=== PATIENT | female | born 1990 | race Caucasian/White ===

== ENCOUNTER 2020-10-17 09:49 | Inpatient (IN) | payer OTHER ==
[2020-10-17] MEDS ORDERED: CITRIC ACID-SODIUM CITRATE 15 ML CUP PO ONE (10:12)
[2020-10-17] MEDS ORDERED: LACTATED RINGERS 1,000 ML IV ONE (10:12)
--- NOTE | 2020-10-17 10:50 | P.HPOB ---
History of Present Illness H&P Date: 10/17/20 Chief Complaint: IUP at 39 weeks, history of 1 desires repeat This is a 30-year-old at 39 weeks of (edc 10/24/20 LMP c/w first trimester ultrasound) that presents for scheduled repeat section. Patient has been receiving routine care which has been essentially uncomplicated. Patient notes good movement denies vaginal bleeding or loss of fluid. On bloodwork this patient has a blood type of A+, rubella status nonimmune, RPR is nonreactive, hepatitis B surface antigen is negative, HIV is negative, she did pass her 1 hour GDS, maternity 21 testing was negative, group beta strep cultures were negative on 09/29. Review of Systems Constitutional: Denies chills, Denies fatigue, Denies fever Ears, nose, mouth and throat: Denies headache Cardiovascular: Reports leg edema Respiratory: Denies dyspnea Gastrointestinal: Denies constipation, Denies diarrhea, Denies nausea, Denies vomiting Genitourinary: Reports Past Medical History Past Medical History: No Reported History History of Any Multi-Drug Resistant Organisms: None Reported Past Surgical History: Appendectomy, Section Additional Past Surgical History / Comment(s): 2010 c section, 2012 appendectomy Past Anesthesia/Blood Transfusion Reactions: No Reported Reaction Past Psychological History: No Psychological Hx Reported Smoking Status: Former smoker Past Alcohol Use History: None Reported Past Drug Use History: None Reported Additional Drug Use History / Comment(s): Stopped smoking February 2020 - Past Family History Mother Family Medical History: No Reported History Medications and Allergies Home Medications Medication Instructions Recorded Confirmed Type Aspirin [Adult Low Dose Aspirin EC] 81 mg PO DAILY 10/17/20 10/17/20 History Pnv No.95/Ferrous Fum/Folic AC 1 each PO DAILY 10/17/20 10/17/20 History [ Multivitamin Tablet] Allergies Allergy/AdvReac Type Severity Reaction Status Date / Time No Known Allergies Allergy Verified 10/17/20 10:10 Exam Osteopathic Statement: *. No significant issues noted on an osteopathic structural exam other than those noted in the History and Physical/Consult. Vital Signs Temp Pulse Resp BP Pulse Ox 10/17/20 10:09 98.4 F 102 H 16 128/80 97 Intake and Output 10/16/20 10/17/20 10/17/20 22:59 06:59 14:59 Other: Weight 102.076 kg Targeted physical exam is performed in this date and audit associate a well-nourished well-developed female in no acute distress, breathing is noted to be nonlabored, heart has a regular rate and rhythm, abdomen is gravid and ap propriate for gestational age, heart tones returned be category 1 and she is not tonie. Cervical exam is deferred. Assessment and Plan (1) 39 weeks gestation of Current Visit: Yes Status: Acute Code(s): Z3A.39 - 39 WEEKS GESTATION OF SNOMED Code(s): 69538126 (2) H/O section Current Visit: Yes Status: Acute Code(s): Z98.891 - HISTORY OF UTERINE SCAR FROM PREVIOUS SURGERY SNOMED Code(s): 170030039 Plan: 30-year-old at 39 weeks of gestation that presents for scheduled repeat section. Patient is counseled on risks of surgery including but not limited to infection, bleeding, damage to bladder, injury. Patient states understanding and is taken back to the operating suite.
[2020-10-17 11:10] LABS: HCT 35.9 % (34.0-46.0); HGB 12.3 gm/dL (11.4-16.0); MCH 30.2 pg (25.0-35.0); MCHC 34.3 g/dL (31.0-37.0); MCV 88.1 fL (80.0-100.0); Mean Platelet Volume 8.3; Platelet Count 207 k/uL (150-450); RBC 4.08 m/uL (3.80-5.40); RDW 14.4 % (11.5-15.5); WBC 9.9 k/uL (3.8-10.6)
[2020-10-17] MEDS ORDERED: OXYTOCIN 30 UNITS/500 ML NS BAG IV ONE (11:40)
[2020-10-17] MEDS ORDERED: KETOROLAC 15 MG/ML 1 ML VIAL ONE (11:40)
[2020-10-17] MEDS ORDERED: MORPHINE SULFATE (PF) 0.3 MG/0.3 ML SYR ONE (11:40)
[2020-10-17] MEDS ORDERED: ONDANSETRON 4 MG/2 ML VIAL ONE (11:40)
[2020-10-17 12:09] LABS: Lymphocytes # (M) 1.49 k/uL (1.0-4.8); Monocytes # (M) 0.59 k/uL (0-1.0); Neutrophils # (M) 7.72 k/uL (1.3-7.7); Neutrophils % (M) 78 %; Nucleated Red Blood Cells 0 /100 WBC (0-0); Total Cells Counted 100
--- NOTE | 2020-10-17 12:37 | P.OP ---
Date of Procedure: 10/17/20 Preoperative Diagnosis: IUP at 39 weeks, history of 1 desires repeat Postoperative Diagnosis: Same Procedure(s) Performed: Repeat section Anesthesia: spinal Surgeon: Lacey Escobedo [employer] Utility Worker #1: Dianelys Granados Estimated Blood Loss (ml): 500 IV fluids (ml): 1,000 Urine output (ml): 150 Pathology: none sent Condition: stable Disposition: observation Indications for Procedure: 30-year-old at 39 weeks of gestation with a history of 1, desires repeat Operative Findings: Normal uterus tubes and ovaries were appreciated, viable female delivered at 1206, weight of 8 lbs. 3 oz. and Apgars of 8 and 9 at one and 5 minutes respectively. Description of Procedure: The patient was prepped and draped in the usual fashion after spinal anesthesia was administered by anesthesia. A Pfannenstiel incision was made and extended of the abdominal cavity without difficulty. The bladder peritoneum was elevated and incised and reflected distally. A 2 cm incision was made in the transverse plane of the lower uterine segment to enter the uterus at which time clear fluid was noted. The incision was extended in both directions using the bandage scissors. The head was encountered within the field and delivered up and through the incision where the nose and mouth were thoroughly suctioned. Remainder of the was delivered onto the surgical field where the cord was doubly clamped, cut, and the infant was passed for resuscitative measures with weight and Apgars as noted above. A segment of cord was then doubly clamped, and cut.. The placenta was delivered manually, intact, and was grossly normal with a grossly normal three-vessel cord. The uterus was exteriorized and the interior cavity of the uterus swept of any remaining placental and membranous fragments with a laparotomy sponge. The margins of the incision were grasped with Allis clamps and the incision closed in 2 layers. First layer was a running locking layer of 0 Vicryl from margin to margin followed by a second layer of imbricating 0 Vicryl from margin to margin. Any small points of bleeding were then made hemostatic with the Bovie. Once hemostasis was achieved, the posterior cul-de-sac was suctioned with a guard and the uterine and ovarian findings are as noted above. The uterus was replaced within the abdominal cavity and the gutters swept of any remaining blood fluid or clot. The incision was again reexamined and hemostasis was noted to be excellent. Any small point of bleeding were made hemostatic with the Bovie. Once hemostasis was achieved the parietal peritoneum was loosely reapproximated. The layer of muscles were examined and made hemostatic with the Bovie. Attention was then turned to the fascia which was closed with 2 running stitches of 0 Vicryl proceeding from the lateral margins to the midpoint. The subcutaneous tissues were irrigated, made hemostatic with the Bovie, and reapproximated with a running stitch of 30 Vicryl. The skin was reapproximated with 4-0 Vicryl. Estimated blood loss for the case was approximately 500 mL. All sponge instrument and needle counts are correct. There were no complications. The patient tolerated the procedure well and proceeded to the recovery room in stable condition. Both mother and infant are resting comfortably in recovery.
[2020-10-17] MEDS ORDERED: diphenhydrAMINE 25 MG CAP PO PRN (13:05)
[2020-10-17] MEDS ORDERED: ZOLPIDEM 5 MG TAB PO PRN (13:05)
[2020-10-17] MEDS ORDERED: ONDANSETRON 4 MG/2 ML VIAL IVP PRN (13:05)
[2020-10-17] MEDS ORDERED: diphenhydrAMINE 50 MG CAP PO PRN (13:05)
[2020-10-17] MEDS ORDERED: LACTATED RINGERS 1,000 ML IV SCH (13:05)
[2020-10-17] MEDS ORDERED: METOCLOPRAMIDE 5 MG/ML 2 ML VIAL IVP PRN (13:05)
[2020-10-17] MEDS ORDERED: OXYTOCIN 30 UNITS/500 ML NS 30 UNIT in SALINE 1 500ML.BAG IV SCH (13:05)
[2020-10-17] MEDS ORDERED: SIMETHICONE 80 MG CHEWABLE PO PRN (13:05)
[2020-10-17] MEDS ORDERED: diphenhydrAMINE 50 MG/ML 1 ML VIAL IVP PRN ×2 (13:05)
[2020-10-17] MEDS ORDERED: NALOXONE 0.4 MG/ML 1 ML VIAL IV PRN ×2 (13:05→14:25)
[2020-10-17] MEDS: ACETAMINOPHEN IV (For NPO) 1,000 MG in EMPTY BAG 1 BAG IVPB SCH ×2 (13:50→20:42)
[2020-10-17] MEDS ORDERED: MORPHINE SULFATE 2 MG/ML SYRINGE IVP PRN (14:25)
[2020-10-17] MEDS: LACTATED RINGERS 1,000 ML IV SCH ×2 (14:59→16:57)
[2020-10-17] MEDS: ACETAMINOPHEN TAB 500 MG TAB PO SCH ×2 (15:52→21:14)
[2020-10-17] MEDS: IBUPROFEN IV 800 MG in SODIUM CHLORIDE 0.9% 250 ML IV SCH (16:56)
[2020-10-17] MEDS: IBUPROFEN 600 MG TAB PO SCH ×2 (21:14→22:53)
[2020-10-17] MEDS: SENNOSIDES-DOCUSATE SODIUM 1 EACH TAB PO SCH (21:14)
[2020-10-18] MEDS: IBUPROFEN IV 800 MG in SODIUM CHLORIDE 0.9% 250 ML IV SCH ×4 (00:51→18:15)
[2020-10-18] MEDS: LACTATED RINGERS 1,000 ML IV SCH ×2 (02:29→18:15)
[2020-10-18] MEDS ORDERED: MEASLES-MUMPS-RUBELLA VACC/PF 12,500 UNIT/0.5 ML VIAL SQ ONE (03:33)
[2020-10-18] MEDS: ACETAMINOPHEN TAB 500 MG TAB PO SCH ×5 (04:20→23:51)
[2020-10-18 06:49] LABS: HCT 37.2 % (34.0-46.0); HGB 12.6 gm/dL (11.4-16.0); MCHC 33.8 g/dL (31.0-37.0); MCV 88.6 fL (80.0-100.0); Mean Platelet Volume 8.3; Platelet Count 201 k/uL (150-450); RDW 14.4 % (11.5-15.5); WBC 11.7 k/uL (3.8-10.6)
--- NOTE | 2020-10-18 07:07 | P.PN ---
Progress Note - Text Postop day 1 from under spinal anesthesia with intrathecal morphine given for postop pain management. Patient is doing well. Pain is well controlled. On visual analog scale 2-3/10 Mild itching present No nausea or vomiting reported. No Headache or weakness and numbness in the legs. No complications from spinal anesthesia.
--- NOTE | 2020-10-18 07:52 | P.PNOBGPC ---
Subjective - Subjective Principal diagnosis: POD 1 RCS Interval history: Patient did well overnight. She is ambulating and voiding without difficulty. She is tolerating clear liquids without nausea or vomiting. She states her pain is well-controlled. Patient reports: Reports appetite normal, Reports voiding normally, Reports pain well controlled, Reports ambulating normally [place]: doing well Objective - Vital Signs Latest vital signs: Vital Signs Temp Pulse Resp BP Pulse Ox 10/18/20 04:00 97.9 F 93 14 102/59 99 10/18/20 00:00 97.9 F 85 18 104/53 99 10/17/20 20:00 97.0 F L 83 18 111/61 98 10/17/20 16:58 17 10/17/20 15:14 17 98 10/17/20 14:39 96.5 F L 85 16 94/66 98 10/17/20 14:25 17 98 10/17/20 14:09 97.1 F L 85 17 97/56 98 10/17/20 13:39 97.3 F L 85 17 91/53 98 10/17/20 13:24 78 17 101/53 100 10/17/20 13:09 90 17 115/57 99 10/17/20 12:54 94 16 121/59 98 10/17/20 12:39 98.2 F 103 H 18 102/49 96 10/17/20 10:09 98.4 F 102 H 16 128/80 97 Intake and Output 10/17/20 10/18/20 10/18/20 22:59 06:59 14:59 Intake Total 357.833 Output Total 950 1000 Balance -592.167 -1000 Intake: Intake, IV Titration 357.833 Amount Oxytocin 30 Units/500 ml 357.833 Ns 30 unit In Saline 1 500ml.bag @ Per Protocol IV .Q0M [facility] Rx#:[id number] Output: Urine 950 1000 Uretheral (Chávez) 500 Other: Voiding Method Indwelling Catheter # Voids 2 - Exam Extremities: Present: edema Abdomen: Present: normal appearance Incision: Present: normal, intact Uterus: Present: normal, firm - Labs Labs: Abnormal Lab Results - Last 24 Hours (Table) 10/17/20 10/18/20 Range/Units 10:22 06:32 WBC 11.7 H (3.8-10.6) k/uL Neutrophils # (Manual) 7.72 H (1.3-7.7) k/uL Assessment and Plan (1) 39 weeks gestation of Current Visit: Yes Status: Acute Code(s): Z3A.39 - 39 WEEKS GESTATION OF SNOMED Code(s): 74667732 (2) H/O section Current Visit: Yes Status: Acute Code(s): Z98.891 - HISTORY OF UTERINE SCAR FROM PREVIOUS SURGERY SNOMED Code(s): 404827250 (3) Status post delivery Current Visit: Yes Status: Acute Code(s): Z98.891 - HISTORY OF UTERINE SCAR FROM PREVIOUS SURGERY SNOMED Code(s): 114456980 Plan: 30-year-old status post repeat yesterday. Patient is doing well. Plan to continue routine postoperative care. And history discharge home tomorrow.
[2020-10-18] MEDS: SENNOSIDES-DOCUSATE SODIUM 1 EACH TAB PO SCH ×2 (07:56→19:48)
[2020-10-18] MEDS: PRENATAL VIT-IRON-FOLIC ACID 1 EACH CAP PO SCH (07:56)
[2020-10-18] MEDS: IBUPROFEN 600 MG TAB PO SCH ×3 (08:03→19:48)
[2020-10-18 10:12] LABS: Eosinophils # (M) 0.23 k/uL (0-0.7); Lymphocytes # (M) 1.17 k/uL (1.0-4.8); Monocytes # (M) 0.59 k/uL (0-1.0); Neutrophils # (M) 9.71 k/uL (1.3-7.7); Neutrophils % (M) 83 %; Nucleated Red Blood Cells 0 /100 WBC (0-0); Total Cells Counted 100
[2020-10-19] MEDS: IBUPROFEN 600 MG TAB PO SCH ×3 (02:13→08:25)
[2020-10-19] MEDS: ACETAMINOPHEN TAB 500 MG TAB PO SCH (05:56)
[2020-10-19] MEDS: SENNOSIDES-DOCUSATE SODIUM 1 EACH TAB PO SCH (08:25)
--- NOTE | 2020-10-19 08:55 | P.DS ---
Providers Date of admission: 10/17/20 09:49 Expected date of discharge: 10/19/20 Attending physician: Lacey Escobedo Primary care physician: Stated None - Discharge Diagnosis(es) (1) 39 weeks gestation of Current Visit: Yes Status: Acute (2) H/O section Current Visit: Yes Status: Acute (3) Status post delivery Current Visit: Yes Status: Acute Hospital Course: 30-year-old status post repeat section. Patient was admitted to labor and delivery for scheduled repeat section. For full details on this patient please see the dictated history and physical. Patient underwent repeat section without complication. For full details on the section please see the operative report. Patient's postoperative course has been uneventful. On this postoperative day #2 she is ambulatory and voiding without difficulty. She is breast-feeding without difficulty. She states her pain is well-controlled with oral medications. Her lochia is minimal. She does desire discharge home today. Plan - Discharge Summary New Discharge Prescriptions: No Action Pnv No.95/Ferrous Fum/Folic AC [ Multivitamin Tablet] 1 each PO DAILY Aspirin [Adult Low Dose Aspirin EC] 81 mg PO DAILY Discharge Medication List Aspirin [Adult Low Dose Aspirin EC] 81 mg PO DAILY 10/17/20 [History] Pnv No.95/Ferrous Fum/Folic AC [ Multivitamin Tablet] 1 each PO DAILY 10/17/20 [History] Follow up Appointment(s)/Referral(s): Lacey Escobedo DO [Doctor of Osteopathic Medicine] - 2 Weeks Patient Instructions/Handouts: (DC), (GEN) Activity/Diet/Wound Care/Special Instructions: Patient is encouraged to take lzuy-nci-leitunn ibuprofen 600 mg every 6 hours as needed for pain, senna S for stool softener status post are recommended. Patient is to follow-up in the office in 2 weeks, should she have any concerns prior to this she is urged to call the office. Discharge Disposition: HOME SELF-CARE
[2020-10-19 09:08] VITALS: BP 112/62; PULSE 78; RESP 16; TEMP 98.2
[2020-10-19] MEDS: PRENATAL VIT-IRON-FOLIC ACID 1 EACH CAP PO SCH (10:43)
== END 2020-10-19 11:50 | disposition home or self-care (01) | DRG 788 ==
LOC: 4FBP 09:49
PROVIDERS: ADMIT Obstetrics & Gynecology Obstetrics; ATTEND Obstetrics & Gynecology Obstetrics
PROC: 10D00Z1 Extraction of Products of Conception, Low, Open Approach (ICD-10-PCS; principal; 2020-10-17 12:00)
DX: O34.211 Maternal care for low transverse scar from previous cesarean delivery (principal); Z37.0 Single live birth; Z3A.39 39 weeks gestation of pregnancy; Z79.82 Long term (current) use of aspirin; Z87.891 Personal history of nicotine dependence
CPT/HCPCS: 85025; 86850; 86900; 86901; 90707

== ENCOUNTER 2022-08-09 20:32 | Emergency (ER) | payer OTHER ==
[2022-08-09] MEDS ORDERED: BACLOFEN 10 MG TAB PO ONE (21:06)
--- NOTE | 2022-08-09 21:10 | ED ---
Extremity Problem HPI - General Chief complaint: Extremity Problem,Nontraumatic Stated complaint: R leg pain Time Seen by Provider: 08/09/22 20:55 Source: patient, RN notes reviewed Mode of arrival: ambulatory Limitations: no limitations - History of Present Illness Initial comments: This is a 31-year-old female who presents to the emergency department for right leg pain. States that this started 4-5 days ago. Denies any known injuries. This started in the thigh and has started to spread down into the calf. Describes this as a tightness and cramping sensation. She has not noticed any redness, swelling, or discoloration to this area. Denies any history of similar symptoms in the past. Denies any chest pain, shortness of breath, or history of blood clots. Denies any fevers, chills, sore throat, cough, dyspnea, chest pain, palpitations, abdominal pain, nausea, vomiting, diarrhea, back pain, or headaches. MD Complaint: extremity pain Onset/Timin -: days(s) Location: right, lower extremity - Related Data Home Medications Medication Instructions Recorded Confirmed Aspirin [Adult Low Dose Aspirin EC] 81 mg PO DAILY 10/17/20 10/17/20 Pnv No.95/Ferrous Fum/Folic AC 1 each PO DAILY 10/17/20 10/17/20 [ Multivitamin Tablet] Previous Rx's Medication Instructions Recorded Ketorolac [Toradol] 10 mg PO Q6HR PRN #12 tab 08/09/22 diazePAM [Valium] 2 mg PO Q8HR PRN 3 Days #9 tab 08/09/22 Allergies Allergy/AdvReac Type Severity Reaction Status Date / Time No Known Allergies Allergy Verified 08/09/22 20:51 Review of Systems ROS Statement: Those systems with pertinent positive or pertinent negative responses have been documented in the HPI. ROS Other: All systems not noted in ROS Statement are negative. Past Medical History Past Medical History: No Reported History History of Any Multi-Drug Resistant Organisms: None Reported Past Surgical History: Appendectomy, Section Additional Past Surgical History / Comment(s): 2010 c section, 2012 appendectomy Past Anesthesia/Blood Transfusion Reactions: No Reported Reaction Past Psychological History: No Psychological Hx Reported Smoking Status: Former smoker Past Alcohol Use History: None Reported Past Drug Use History: None Reported - Past Family History Mother Family Medical History: No Reported History General Exam Limitations: no limitations General appearance: alert, in no apparent distress Head exam: Present: atraumatic, normocephalic, normal inspection Respiratory exam: Present: normal lung sounds bilaterally. Absent: respiratory distress, wheezes, rales, rhonchi, stridor Cardiovascular Exam: Present: regular rate, normal rhythm, normal heart sounds. Absent: systolic murmur, diastolic murmur, rubs, gallop, clicks Extremities exam: Present: other (No redness, swelling, erythema, or tenderness to the entirety of the right lower extremity. Negative Homans sign. 2+ DP and PT pulses.) Neurological exam: Present: alert, oriented X3, CN II-XII intact Psychiatric exam: Present: normal affect, normal mood Skin exam: Present: warm, dry, intact, normal color. Absent: rash Course Vital Signs 08/09/22 08/09/22 20:47 22:45 Temperature 99.3 F 98.2 F Pulse Rate 74 61 Respiratory 20 18 Rate Blood Pressure 122/77 94/55 O2 Sat by Pulse 100 99 Oximetry Medical Decision Making - Medical Decision Making This is a 31-year-old female who presents to the emergency department for right leg pain. Was pt. sent in by a medical professional or institution? @ -No Did you speak to anyone other than the patient for history? @ -No Did you review nursing and triage notes? @ -Yes, and I agree, it is accurate with regards to the patient's symptoms. Were old charts reviewed? @ -No Differential Diagnosis? @ -Differential Leg Pain: Leg fracture, leg sprain, DVT, PVD, arterial insufficiency, iliac artery an eurysm, cellulitis, compartment syndrome, tendinopathy, nerve entrapment, piriformis syndrome, osteoarthritis, rhabdomyolysis, myositis, cramping from an electrolyte imbalance, this is not meant to be an all inclusive list. EKG interpreted by me (3pts min.)? @ -Not obtained X-rays interpreted by me (1pt min.)? @ -Not obtained CT interpreted by me (1pt min.)? @ -Not obtained U/S interpreted by me (1pt. min.)? @ -Duplex US of the right lower extremity obtained. My interpretation identifies no evidence of a DVT. What testing was considered but not performed? (CT, X-rays, U/S, labs)? Why? @ -None What meds were considered but not given? Why? @ -None Did you discuss the management of the patient with other professionals? @ -No Did you reconcile home meds? @ -No Was smoking cessation discussed for >3mins.? @ -No Was critical care preformed (if so, how long)? @ -No Were there social determinants of health that impacted care today? How? (Homelessness, low income, unemployed, alcoholism, drug addiction, transportation, low edu. Level, literacy, decrease access to med. care, longterm, rehab)? @ -No Was there de-escalation of care discussed even if they declined? (Discuss DNR or withdrawal of care, Hospice)? @ -No What co-morbidities impacted this encounter? (DM, HTN, Smoking, COPD, CAD, Cancer, CVA, Hep., AIDS, mental health diagnosis, sleep apnea, morbid obesity)? @ -None Was patient admitted / discharged? @ -Discharged. Duplex ultrasound of the right lower extremity obtained revealing no evidence of a DVT or other acute findings. The leg did not have any external irregularities and she was neurovascularly intact. This may be musculoskeletal in nature. However, I advised that she should follow-up with her PCP for reevaluation as she may need a repeat ultrasound if symptoms persist. Prescription for Toradol and Valium provided with dosing instructions reviewed to help with pain, inflammation, and tightness/cramping. Advised that the Valium may make her drowsy and she should avoid driving or operating machinery when taking this. Patient is instructed to take the Toradol with Tylenol if needed and avoid any other ucax-ind-jzvoyna anti-inflammatories such as ibuprofen with the Toradol. Undiagnosed new problem with uncertain prognosis? @ -None Drug Therapy requiring intensive monitoring for toxicity (Heparin, Nitro, Insulin, Cardizem)? @ -None Were any procedures done? @ -None Diagnosis/symptom? @ -Right leg pain Acute, or Chronic, or Acute on Chronic? @ -Acute Uncomplicated (without systemic symptoms) or Complicated (systemic symptoms)? @ -Uncomplicated Side effects of treatment? @ -None Exacerbation, Progression, or Severe Exacerbation] @ -Not applicable Poses a threat to life or bodily function? @ -No Return precautions reviewed in depth, the patient is instructed to return to the emergency department with any new, worsening, or concerning symptoms. Patient verbalized understanding. This case was discussed in detail with the attending ED physician, Dr. Faith. Presentation, findings, and treatment plan discussed in detail as well. - Radiology Data Radiology results: report reviewed, image reviewed Disposition Clinical Impression: Right leg pain Disposition: HOME SELF-CARE Instructions (If sedation given, give patient instructions): Leg Pain (ED) Additional Instructions: Return to the emergency department with any new, worsening, or concerning symptoms. You can take the Toradol up to every 6 hours as needed for pain relief. If you choose to take this, do not take any other zgvn-rmt-upqlfyg anti-inflammatories such as ibuprofen, take one or the other. You may take it with Tylenol. You can take the Valium as 1-2 tablets up to 3 times daily as needed for tightness/cramping. Follow up with your primary care provider in 1-2 days. You may need a repeat ultrasound if symptoms persist. Prescriptions: Ketorolac [Toradol] 10 mg PO Q6HR PRN #12 tab PRN Reason: Pain diazePAM [Valium] 2 mg PO Q8HR PRN 3 Days #9 tab PRN Reason: Spasms Is patient prescribed a controlled substance at d/c from ED?: Yes When asked, does pt state using other controlled substances?: No If prescribed controlled substance>3 days was MAPS reviewed?: Prescribed <3 Days Referrals: Charito Angel MD [Primary Care Provider] - 1-2 days
--- NOTE | 2022-08-09 21:55 | US ---
EXAMINATION TYPE: US venous doppler duplex LE RT DATE OF EXAM: 08/09/2022 9:07 PM COMPARISON: NONE CLINICAL INDICATION: Female, 31 years old with history of Right leg pain; Right thigh and knee pain x 5 days. No hx of DVT. Not on blood thinners SIDE PERFORMED: Right TECHNIQUE: The lower extremity deep venous system is examined utilizing real time linear array sonog chanell with graded compression, doppler sonography and color-flow sonography. VESSELS IMAGED: Common Femoral Vein Deep Femoral Vein Greater Saphenous Vein * Femoral Vein Popliteal Vein Small Saphenous Vein * Proximal Calf Veins (* superficial vessels) Grayscale, color doppler, spectral doppler imaging performed of the deep veins of the right lower ext remities. There is normal flow, compressibility, vascular waveforms. Right Leg: Negative for DVT IMPRESSION: No ultrasound evidence of deep venous thrombosis of the right lower extremity.
[2022-08-09] MEDS ORDERED: diazePAM 2 MG TAB PO STA (22:10)
[2022-08-09 22:52] VITALS: BP 94/55; PULSE 61; RESP 18; TEMP 98.2
== END 2022-08-09 22:45 | disposition home or self-care (01) ==
LOC: EC 20:32
DX: M79.604 Pain in right leg (principal); Z87.891 Personal history of nicotine dependence
CPT/HCPCS: 99283

== ENCOUNTER 2023-09-16 03:38 | Inpatient (IN) | payer OTHER ==
[2023-09-16] MEDS ORDERED: TRANEXAMIC 1,000 MG/100ML-NACL 1,000 MG in EMPTY BAG 1 BAG IV PRN (04:22)
[2023-09-16] MEDS ORDERED: miSOPROStoL 200 MCG TAB PO PRN (04:22)
[2023-09-16] MEDS ORDERED: OXYTOCIN 10 UNIT/ML 1 ML VIAL IM PRN (04:22)
[2023-09-16] MEDS ORDERED: METHYLERGONOVINE 0.2 MG/ML 1 ML AMP IM PRN (04:22)
[2023-09-16] MEDS ORDERED: CARBOPROST TROMETHAMINE 250 MCG/ML 1 ML AMP IM PRN (04:22)
[2023-09-16] MEDS: NALBUPHINE 10 MG/ML (10 ML MDV) IV PRN (05:45)
[2023-09-16 05:52] LABS: HCT 37.2 % (34.0-46.0); HGB 12.3 gm/dL (11.4-16.0); MCH 29.8 pg (25.0-35.0); MCV 90.5 fL (80.0-100.0); Mean Platelet Volume 9.9; Platelet Count 163 k/uL (150-450); RBC 4.11 m/uL (3.80-5.40); RDW 13.7 % (11.5-15.5); WBC 10.3 k/uL (3.8-10.6)
[2023-09-16 06:18] LABS: Band Neutrophils % 3 %; Lymphocytes # (M) 2.27 k/uL (1.0-4.8); Monocytes # (M) 0.41 k/uL (0-1.0); Neutrophils % (M) 70 %; Nucleated Red Blood Cells 0 /100 WBC (0-0); Total Cells Counted 100
[2023-09-16] MEDS: CITRIC ACID-SODIUM CITRATE 15 ML CUP PO ONE (07:00)
[2023-09-16] MEDS ORDERED: ePHEDrine 50 MG/ML 1 ML VIAL ONE (07:34)
[2023-09-16] MEDS ORDERED: PHENYLEPHRINE-0.9% NACL SYG 1,000 MCG/10 ML SYRINGE ONE (07:34)
[2023-09-16] MEDS ORDERED: MORPHINE SULFATE (PF) 0.3 MG/0.3 ML SYR ONE (07:34)
[2023-09-16] MEDS ORDERED: OXYTOCIN 30 UNITS/500 ML NS BAG IV ONE (07:34)
[2023-09-16] MEDS ORDERED: ONDANSETRON 4 MG/2 ML VIAL ONE (07:34)
[2023-09-16] MEDS ORDERED: diphenhydrAMINE 50 MG/ML 1 ML VIAL IVP PRN ×3 (08:12→08:45)
[2023-09-16] MEDS ORDERED: ONDANSETRON 4 MG/2 ML VIAL IVP PRN ×2 (08:12→08:45)
[2023-09-16] MEDS ORDERED: NALOXONE 0.4 MG/ML 1 ML VIAL IV PRN ×2 (08:12→08:45)
[2023-09-16] MEDS ORDERED: KETOROLAC 15 MG/ML 1 ML VIAL IVP PRN (08:12)
[2023-09-16] MEDS ORDERED: diphenhydrAMINE 25 MG CAP PO PRN (08:45)
[2023-09-16] MEDS ORDERED: ZOLPIDEM 5 MG TAB PO PRN (08:45)
[2023-09-16] MEDS ORDERED: METOCLOPRAMIDE 5 MG/ML 2 ML VIAL IVP PRN (08:45)
[2023-09-16] MEDS: LACTATED RINGERS 1,000 ML IV SCH (08:51)
[2023-09-16] MEDS: OXYTOCIN 30 UNITS/500 ML NS 30 UNIT in SALINE 1 500ML.BAG IV SCH (08:52)
[2023-09-16] MEDS: ACETAMINOPHEN IV (For NPO) 1,000 MG in EMPTY BAG 1 BAG IVPB SCH (08:52)
--- NOTE | 2023-09-16 10:36 | P.OP ---
Date of Procedure: 09/16/23 Preoperative Diagnosis: IUP at 37+ weeks, spontaneous rupture of membranes, history of section Postoperative Diagnosis: Same, suspected placental abruption Procedure(s) Performed: Repeat section Anesthesia: spinal Surgeon: Lacey Escobedo Deposition Operator #1: Giselle Parmar Estimated Blood Loss (ml): 680 IV fluids (ml): 1,000 Urine output (ml): 100 Pathology: other (Placenta) Condition: stable Disposition: observation Indications for Procedure: Spontaneous rupture of membranes, history of section x 2 Operative Findings: Viable male delivered, weight of 7 pounds 1 ounce Description of Procedure: The patient was prepped and draped in the usual fashion after spinal anesthesia was administered the anesthesia department. A Pfannenstiel incision was made and extended of the abdominal cavity without difficulty. Thick uterine adhesion noted to the anterior abdominal wall taken down sharply with the Bovie hemostasis appreciated. The vesicouterine peritoneum was noted to be scarred to the uterus, slight dissection with a sponge is done to push the bladder away from the operating field. A 2 cm incision was made in the transverse plane of the lower uterine segment to enter the uterus at which time clear fluid was noted. The incision was extended in both directions using the bandage scissors. The head was encountered within the field and delivered up and through the incision where the nose and mouth were thoroughly suctioned. Remainder of the was delivered onto the surgical field where the cord was doubly clamped, cut, and the infant was passed for resuscitative measures with weight and Apgars as noted above. The placenta was delivered manually, intact, and was grossly normal with a grossly normal three-vessel cord. The uterus was exteriorized and the interior cavity of the uterus swept of any remaining placental and membranous fragments with a laparotomy sponge. The margins of the incision were grasped with Allis clamps and the incision closed in 2 layers. First layer was a running locking layer of 0 Vicryl from margin to margin followed by a second layer of imbricating 0 Vicryl from margin to margin. Any small points of bleeding were then made hemostatic with the Bovie. Once hemostasis was achieved, the posterior cul-de-sac was suctioned with a guard and the uterine and ovarian findings are as noted above. The uterus was replaced within the abdominal cavity and the gutters swept of any remaining blood fluid or clot. The incision was again reexamined and hemostasis was noted to be excellent. Any small point of bleeding were made hemostatic with the Bovie. Once hemostasis was achieved the parietal peritoneum was loosely reapproximated. The layer of muscles were examined and made hemostatic with the Bovie. Attention was then turned to the fascia which was closed with 2 running stitches of 0 Vicryl proceeding from the lateral margins to the midpoint. The subcutaneous tissues were irrigated, made hemostatic with the Bovie, and reapproximated with a running stitch of 30 plain Vicryl. The skin was reapproximated with 4-0 Vicryl. Estimated blood loss for the case was approximately 680 mL. All sponge instrument and needle counts are correct. There were no complications. The patient tolerated the procedure well and proceeded to the recovery room in stable condition. Both mother and infant are resting comfortably in recovery.
[2023-09-16] MEDS: diphenhydrAMINE 50 MG CAP PO PRN (11:44)
[2023-09-16] MEDS: SENNOSIDES-DOCUSATE SODIUM 1 EACH TAB PO SCH (12:19)
[2023-09-16] MEDS: IBUPROFEN 600 MG TAB PO SCH (14:19)
[2023-09-16] MEDS: IBUPROFEN IV 800 MG in SODIUM CHLORIDE 0.9% 250 ML IV SCH (14:41)
[2023-09-16] MEDS: ACETAMINOPHEN TAB 500 MG TAB PO SCH (18:05)
--- NOTE | 2023-09-17 07:37 | P.PN ---
Progress Note - Text 09/17/23 615am 33-year-old female status post with spinal Duramorph. Patient seen and evaluated for postop pain control, she has a VAS of 0 with no complaint of nausea vomiting or pruritus. doing well
[2023-09-17 08:14] LABS: HCT 33.7 % (34.0-46.0); MCH 30.2 pg (25.0-35.0); MCHC 32.5 g/dL (31.0-37.0); MCV 92.9 fL (80.0-100.0); Mean Platelet Volume 9.6; Platelet Count 135 k/uL (150-450); RBC 3.63 m/uL (3.80-5.40); RDW 13.4 % (11.5-15.5)
--- NOTE | 2023-09-17 08:40 | P.PNOBGPC ---
Subjective - Subjective Principal diagnosis: Postop day 1, repeat section Interval history: Patient is doing well on this postoperative day #1. She is ambulating and voiding without difficulty. States her lochia is minimal. Her pain is well- controlled. She denies concerns Patient reports: Reports appetite normal, Reports voiding normally, Reports pain well controlled, Reports ambulating normally : doing well Objective - Vital Signs Latest vital signs: Vital Signs Temp Pulse Resp BP Pulse Ox 09/17/23 08:00 97.8 F 81 16 97/61 98 09/17/23 02:00 14 09/17/23 00:30 97.8 F 77 17 133/75 99 09/16/23 22:08 16 09/16/23 20:00 98.1 F 83 15 108/62 97 09/16/23 16:28 98.1 F 83 16 100/65 97 09/16/23 14:27 16 09/16/23 12:00 97.4 F L 79 18 102/65 98 09/16/23 10:51 78 100 09/16/23 10:30 96.4 F L 78 18 100/55 100 09/16/23 10:15 76 102/55 100 09/16/23 10:00 96.2 F L 73 18 104/56 100 09/16/23 09:45 75 103/61 100 09/16/23 09:30 82 18 100/58 100 09/16/23 09:15 96.8 F L 79 18 109/78 100 09/16/23 09:00 96.9 F L 88 18 110/67 99 09/16/23 08:45 96.7 F L 87 18 113/59 98 Intake and Output 09/16/23 09/17/23 09/17/23 22:59 06:59 14:59 Intake Total 800 Output Total 1700 1000 Balance -1700 -200 Intake: IV 800 Invasive Line 1 800 Output: Urine 1700 1000 Uretheral (Chávez) 1300 Other: Voiding Method Indwelling Catheter # Voids 1 2 - Exam Extremities: Present: normal, edema Abdomen: Present: normal appearance, soft Incision: Present: normal, dry Uterus: Present: normal, firm - Labs Labs: Abnormal Lab Results - Last 24 Hours (Table) 09/17/23 Range/Units 07:31 RBC 3.63 L (3.80-5.40) m/uL Hgb 11.0 L (11.4-16.0) gm/dL Hct 33.7 L (34.0-46.0) % Plt Count 135 L (150-450) k/uL Assessment and Plan (1) Term Current Visit: Yes Status: Acute Code(s): Z34.90 - ENCNTR FOR SUPRVSN OF NORMAL , UNSP, UNSP TRIMESTER SNOMED Code(s): 13975365 (2) Spontaneous rupture of membranes Current Visit: Yes Status: Acute Code(s): NAV8615 - SNOMED Code(s): 418492634 (3) H/O section Current Visit: No Status: Acute Code(s): Z98.891 - HISTORY OF UTERINE SCAR FROM PREVIOUS SURGERY SNOMED Code(s): 626193859
[2023-09-17 09:52] LABS: Eosinophils # (M) 0.27 k/uL (0-0.7); Lymphocytes # (M) 1.62 k/uL (1.0-4.8); Monocytes # (M) 0.63 k/uL (0-1.0); Neutrophils # (M) 6.57 k/uL (1.3-7.7); Neutrophils % (M) 73 %; Nucleated Red Blood Cells 0 /100 WBC (0-0); Total Cells Counted 200
[2023-09-17 09:53] LABS: RBC Morphology Normal
[2023-09-18] MEDS: SIMETHICONE 80 MG CHEWABLE PO PRN (00:17)
--- NOTE | 2023-09-18 08:02 | P.DS ---
Providers Date of admission: 09/16/23 04:03 Expected date of discharge: 09/18/23 Attending physician: Lacey Escobedo Primary care physician: Stated None - Discharge Diagnosis(es) (1) Term Current Visit: Yes Status: Acute (2) Spontaneous rupture of membranes Current Visit: Yes Status: Acute (3) H/O section Current Visit: No Status: Acute (4) Status post delivery Current Visit: No Status: Acute Hospital Course: 33-year-old 5 now para 3-0-2-3 that presents to labor and delivery on 09/15 with complaints of spontaneous rupture of membranes. Patient was admitted to labor and delivery and repeat section was completed. Patient has a history of 2 prior C-sections. Patient declined tubal ligation. Patient had been receiving routine care which had been essentially uncomplicated. Patient underwent repeat section without complication. Viable male infant delivered 7 pounds 1 ounce, suspected partial abruption was noted with bloody fluid and clot appreciated upon entry into the uterus. For full details on the please the dictated operative report. Patient's postoperative course has been uneventful. In this postoperative day #2 she is ambulating and voiding without difficulty. She is tolerating a regular diet without nausea or vomiting. She states her pain is well-co ntrolled. She denies concerns and does wish discharge home Patient Condition at Discharge: Good Plan - Discharge Summary New Discharge Prescriptions: No Action Pnv No.95/Ferrous Fum/Folic AC [ Multivitamin Tablet] 1 each PO DAILY Aspirin [Adult Low Dose Aspirin EC] 81 mg PO DAILY Discharge Medication List Aspirin [Adult Low Dose Aspirin EC] 81 mg PO DAILY 10/17/20 [History] Pnv No.95/Ferrous Fum/Folic AC [ Multivitamin Tablet] 1 each PO DAILY 10/17/20 [History] Follow up Appointment(s)/Referral(s): Lacey Escobedo DO [Doctor of Osteopathic Medicine] - 09/26/23 1:00 pm (Post Appointment 10-28-2023 at 3pm) Patient Instructions/Handouts: (DC), (GEN) Activity/Diet/Wound Care/Special Instructions: No intercourse,or tub baths. No heavy lifting greater than a gallon of milk. No driving for two weeks. Call with any fever, shakes or chills, with any pain not alleviated by over the counter meds, or with any quesions or concerns. [id number] ibuprofen 600 mg or 3 tablets every 6 hours as needed for pain. Discharge Disposition: HOME SELF-CARE
[2023-09-18 08:14] VITALS: BP 109/73; PULSE 73; RESP 18; TEMP 98.7
--- NOTE | 2023-09-18 14:55 | P.HPOB ---
History of Present Illness H&P Date: 09/16/23 Chief Complaint: IUP at 37 weeks, spontaneous rupture of membranes 33-year-old 5 para 2-0-2-2 at 37+ weeks that presents to labor and delivery with complaints of spontaneous rupture of membranes around 315 this morning. Patient has been tonie off-and-on since that time. Patient has been receiving routine care with myself. blood work this patient is a blood type of Review of Systems Constitutional: Denies chills, Denies fatigue, Denies fever Ears, nose, mouth and throat: Denies headache Cardiovascular: Reports leg edema Respiratory: Denies dyspnea Gastrointestinal: Denies nausea, Denies vomiting Genitourinary: Reports Past Medical History Past Medical History: No Reported History History of Any Multi-Drug Resistant Organisms: None Reported Past Surgical History: Appendectomy, Section Additional Past Surgical History / Comment(s): 2010 c section, 2012 appendectomy Past Anesthesia/Blood Transfusion Reactions: No Reported Reaction Past Psychological History: No Psychological Hx Reported Smoking Status: Never smoker Past Alcohol Use History: None Reported Past Drug Use History: None Reported Additional Drug Use History / Comment(s): Stopped smoking February 2020 - Past Family History Mother Family Medical History: No Reported History Medications and Allergies Home Medications Medication Instructions Recorded Confirmed Type Aspirin [Adult Low Dose Aspirin EC] 81 mg PO DAILY 10/17/20 09/16/23 History Pnv No.95/Ferrous Fum/Folic AC 1 each PO DAILY 10/17/20 09/16/23 History [ Multivitamin Tablet] Allergies Allergy/AdvReac Type Severity Reaction Status Date / Time No Known Allergies Allergy Verified 09/08/23 15:05 Exam Osteopathic Statement: *. No significant issues noted on an osteopathic structural exam other than those noted in the History and Physical/Consult. Vital Signs Temp Pulse Resp BP Pulse Ox 09/16/23 04:21 98.7 F 83 16 125/83 100 09/16/23 03:45 98.7 F 85 16 125/83 100 Intake and Output 09/15/23 09/16/23 09/16/23 22:59 06:59 14:59 Other: # Voids 1 Weight 96.615 kg Targeted physical exam is performed on this date and General is well-nourished well-developed female comfortably resting in bed, breathing is nonlabored, heart has a regular rate and rhythm, abdomen is gravid, rupture of membrane was confirmed in triage. heart tones are noted to be category 1 and she is tonie irregularly. Results Result Diagrams: 09/16/23 04:36 Assessment and Plan (1) Term Current Visit: Yes Status: Acute Code(s): Z34.90 - ENCNTR FOR SUPRVSN OF NORMAL , UNSP, UNSP TRIMESTER SNOMED Code(s): 54252986 (2) Spontaneous rupture of membranes Current Visit: Yes Status: Acute Code(s): MAN1925 - SNOMED Code(s): 585703164 (3) H/O section Current Visit: No Status: Acute Code(s): Z98.891 - HISTORY OF UTERINE SCAR FROM PREVIOUS SURGERY SNOMED Code(s): 721382494 Plan: 33-year-old 5 para 2-0-2-2 at 37+ weeks presents with spontaneous rupture of membranes. Patient has a prior history of section and desires repeat. Anesthesia is notified and is in to see patient. is discussed and risks are reviewed including but not limited to infection, bleeding, damage to bladder, bowel, ureteric or injury. Patient states understanding will proceed.
== END 2023-09-18 11:45 | disposition home or self-care (01) | DRG 786 ==
LOC: FBPOP 03:38 → UNDOADMIN 04:03 → 4FBP 04:03
PROVIDERS: ADMIT Obstetrics & Gynecology; ATTEND Obstetrics & Gynecology Obstetrics
PROC: 10D00Z1 Extraction of Products of Conception, Low, Open Approach (ICD-10-PCS; principal; 2023-09-16 07:45)
DX: O34.211 Maternal care for low transverse scar from previous cesarean delivery (principal); O45.93 Premature separation of placenta, unspecified, third trimester; Z28.310 Unvaccinated for COVID-19; Z79.82 Long term (current) use of aspirin; Z87.891 Personal history of nicotine dependence; Z3A.37 37 weeks gestation of pregnancy; Z37.0 Single live birth
CPT/HCPCS: 59025; 84112; 85025; 86850; 86900; 86901; 99213

== ENCOUNTER → 2024-03-03 | Outpatient (CLI) | payer OTHER ==
--- NOTE | 2024-03-03 09:16 | US ---
EXAMINATION TYPE: US abdomen complete DATE OF EXAM: 03/03/2024 COMPARISON: NONE CLINICAL INDICATION: Female, 33 years old with history of R10.30 LOWER ABDOMINAL PAIN, UNSPECIFIED; L LQ Pain radiating to left hip and LUQ TECHNIQUE: Grayscale and color Doppler imaging of the abdomen was performed. FINDINGS: EXAM MEASUREMENTS: Liver Length: 16.4 cm Gallbladder Wall: 0.2 cm CBD: 0.5 cm, color Doppler imaging was utilized to isolate the common bile duct for measurement. Spleen: 9.9 cm Right Kidney: 10.9 x 4.2 x 5.1 cm Left Kidney: 10.0 x 5.4 x 5.4 cm CLOCK REPAIRER NOTES: Pancreas: wnl Liver: wnl Gallbladder: ? Artifact vs sludge Evidence for sonographic Morelos's sign: No CBD: wnl Spleen: wnl Right Kidney: wnl Left Kidney: wnl Upper IVC: wnl Abd Aorta: wnl The liver is homogenous. The intrahepatic portion of the IVC and proximal abdominal aorta are within normal limits. . Common bile duct is unremarkable. The visualized portions of the pancreas are reymundo ogenous. The spleen is unremarkable. Kidneys are symmetric and free of hydronephrosis. No renal le sions are seen. IMPRESSION: 1. No evidence for acute process. 2. Biliary sludge/cholelithiasis. [facility], , 03/03/2024 9:13 AM
--- NOTE | 2024-03-03 09:17 | US ---
EXAMINATION TYPE: US pelvic complete DATE OF EXAM: 03/03/2024 COMPARISON: NONE CLINICAL INDICATION: Female, 33 years old with history of R10.30 LOWER ABDOMINAL PAIN, UNSPECIFIED; L LQ pain radiating to left hip and LUQ TECHNIQUE: Transabdominal (TA). Transabdominal grayscale sonographic images of the pelvis were acquired. Transvaginal sonographic im ages were not medically necessary Doppler imaging: Not performed. FINDINGS: Date of LMP: 02/22/2024 EXAM MEASUREMENTS: Uterus: 11.3 x 4.3 x 6.4 cm Endometrial Stripe: 1.3 cm Right Ovary: 3.6 x 1.6 x 2.4 cm Left Ovary: 4.3 x 2.6 x 3.0 cm 1. Uterus: Anteverted ? Fibroid right uterine fundus = 3.2 x 3.5 x 3.3 cm 2. Endometrium: wnl 3. Right Ovary: wnl 4. Left Ovary: Multiple follicles with dominant follicle 5. Bilateral Adnexa: wnl 6. Posterior cul-de-sac: wnl IMPRESSION: 1. No evidence for acute process. 2. Fibroid changes. 3. [facility], , 03/03/2024 9:15 AM
== END | disposition home or self-care (01) ==
LOC: RADUSWWP 06:44
PROVIDERS: ATTEND Internal Medicine Geriatric Medicine
DX: K80.20 Calculus of gallbladder without cholecystitis without obstruction (principal); R10.32 Left lower quadrant pain
CPT/HCPCS: 76700; 76856